=== PATIENT | male | born 2000 | race American Indian/Alaskan Native ===

== ENCOUNTER 2020-10-01 14:52 | Emergency (ER) | payer SELFPAY ==
[2020-10-01 15:28] VITALS: BP 132/78
--- NOTE | 2020-10-01 17:43 | Emergency Department Report ---
Chief Complaint: Abdominal Pain Stated Complaint: NAUSEA/FATIGUE/UPSET STOMACH Time Seen by Provider: 10/01/20 17:29 - HPI History of Present Illness: 20-year-old -[place] male presents to the emergency room for intermittent abdominal pain for the last 2 to 3 days. Patient states he thinks it is worse when he is vapes. Patient also reports that there is pain comes when he does not eat for long period of time. Patient reports mild nausea but no vomiting. States the pain is just feels like an upset stomach any has growling in his stomach. Patient denies any diarrhea no loss of taste no loss of smell no chest pain no shortness of breath no fever chills. - Exam Vital Signs: Vital Signs 10/01/20 15:27 Temperature 97.9 F Pulse Rate 65 Respiratory 20 Rate Blood Pressure 132/78 O2 Sat by Pulse 100 Oximetry Physical Exam: Gen: alert oriented NAD Cardic: regular rate and rhythm no murmurs appreciated Resp: Clear to auscultation bilateral no wheezing no rales or rhonchi. Abdomen: Soft nontender nondistended normal bowel sounds. Ambulatory without difficulties MSE screening note: Focused history and physical exam performed. Due to findings the following was ordered: 20-year-old -[place] male presents to the emergency room for intermittent abdominal pain for the last 2 to 3 days. Patient states he thinks it is worse when he is vapes. Patient also reports that there is pain comes when he does not eat for long period of time. Patient reports mild nausea but no vomiting. States the pain is just feels like an upset stomach any has growling in his stomach. Patient denies any diarrhea no loss of taste no loss of smell no chest pain no shortness of breath no fever chills. ED Disposition for MSE Disposition: Z-07 MED SCREENING EXAM-LEFT Is pt being admited?: No Does the pt Need Aspirin: No Condition: Stable Instructions: Food Choices to Help Relieve Diarrhea, Adult Additional Instructions: Recommend following a brat diet. You can try [id number] Imodium AD which is [id number]. Do not exceed more than 8 mg in a 24-hour period. Recommended to follow-up with a conveyor belt installer. Try to do better with eating a well-balanced meal. Avoid smoking especially vaping. Referrals: PRIMARY CARE, [Primary Care Provider] - 3-5 Days [facility] [Provider Group] - 3-5 Days BRYANT FALK MD [Staff Physician] - 3-5 Days Forms: Work/School Release Form(ED)
== END 2020-10-01 18:46 | disposition left against medical advice (07) ==
LOC: ED 14:52
DX: R10.9 Unspecified abdominal pain (principal); Z53.21 Procedure and treatment not carried out due to patient leaving prior to being seen by health care provider